=== PATIENT | female | born 1955 | race Two or more races ===

== ENCOUNTER 2018-12-26 16:14 | Emergency (ER) | payer SELFPAY ==
[~2018-12-26] VITALS: Ht 162.6 cm; Wt 82.0 kg
[2018-12-26 20:04] VITALS: BP 143/74
== END 2018-12-26 20:50 | disposition left against medical advice (07) ==
LOC: ER 16:14
DX: Z53.21 Procedure and treatment not carried out due to patient leaving prior to being seen by health care provider (principal)